=== PATIENT | male | born 1970 | race Caucasian/White ===

== ENCOUNTER → 2021-12-02 11:22 | Outpatient (BNVA) | payer SELFPAY | PROVIDERS: Visit Provider Family Medicine | DX: M79.603 Pain in arm, unspecified (principal) | CPT/HCPCS: 73060 ==

== ENCOUNTER 2025-01-12 20:47 | Emergency (ER) | payer SELFPAY ==
--- NOTE | 2025-01-12 20:48 | XRR_ITS ---
PROCEDURE INFORMATION: Exam: XR Chest Exam date and time: 01/12/2025 9:22 PM Age: 54 years old Clinical indication: Chest pressure; Chest pain TECHNIQUE: Imaging protocol: Radiologic exam of the chest. Views: 1 view. COMPARISON: [place] [id number] 12/02/2021 11:25 AM FINDINGS: Lungs: Unremarkable. No consolidation. Pleural spaces: Unremarkable. No pleural effusion. No pneumothorax. Heart/Mediastinum: Unremarkable. No cardiomegaly. Bones/joints: Unremarkable. XR/XR chest 1V portable [id number] IMPRESSION: No acute findings.
--- NOTE | 2025-01-12 20:48 | ECG_ITS ---
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 Measurements Intervals [place] Rate: 86 P: 56 [place]: 150 QRS: 18 QRSD: 99 T: 40 QT: 334 QTc: 400 Interpretive Statements SINUS RHYTHM No previous ECG available for comparison Electronically Signed On 01-12-2025 21:08:56 CDT by Mallika Watkins M.D. [id number]
[2025-01-12 20:54] VITALS: BP 122/76; PULSE 88; RESP 16; TEMP 38.9; O2SAT 95; BMI 27.8
[2025-01-12 21:06] LABS: Basophils # 0.1 10^3/uL (0.0-0.1); Basophils % 0.4 %; Eosinophils # 0.3 10^3/uL (0.0-0.8); Hematocrit 41.2 % (37-53); Lymphocytes # 2.1 10^3/uL (0.8-4.8); Lymphocytes % 14.8 %; Mean Corpuscular HGB Conc 33.3 g/dL (30-55); Mean Corpuscular Hemoglobin 28.4 pg (27-33); Mean Corpuscular Volume 85.3 fl (82-101); Mean Platelet Volume 10.4 fL (7.4-10.4); Monocytes # 1.6 10^3/uL (0.2-0.9); Monocytes % 11.4 %; Neutrophils # 9.95 10^3/uL (1.8-7.7); Nucleated Red Blood Cells % 0 %; Platelet Count 236 10^3/cmm (157-399); Red Blood Count 4.83 10^6/uL (3.85-5.65); Red Cell Distribution Width 13.6 % (12.1-15.1); White Blood Count 13.99 10^3/uL (3.29-11.43)
[2025-01-12 21:26] LABS: Troponin(5th) Baseline 14 ng/L (0-15)
[2025-01-12 21:27] LABS: Lactic Sepsis W/Reflex 1.1 mmol/L (0.5-2.2)
[2025-01-12 21:40] LABS: Alanine Aminotransferase 17 U/L (0-41); Albumin Level 3.9 g/dL (3.5-5.2); Alkaline Phosphatase 70 U/L (40-130); Anion Gap 15.2 (5-19); Aspartate Amino Transferase 18 U/L (0-40); Blood Urea Nitrogen 18 mg/dL (6-20); Calcium 8.2 mg/dL (8.5-10.5); Carbon Dioxide 15 mmol/L (22-29); Chloride 108 mmol/L (98-107); Creatinine Clr Calc Pharmacy 117.9496; Globulin 4.4 g/dL (1.3-4.6); Glomerular Filtration Rate 100.7 mL/min (90-130); Glucose 105 mg/dL (65-115); Lipase 30 U/L (13-60); NT Pro B Type Natriuretic Pept 61 pg/mL (0-125); Osmolality Calculated 280 mOsm/kg (285-295); Potassium 4.2 mmol/L (3.5-5.1); Sodium 134 mmol/L (136-145); Total Bilirubin 0.2 mg/dL (0.15-1.2); Total Protein 8.3 g/dL (6.6-8.7)
[2025-01-12] MEDS: ibuprofen 200 mg Tablet 400 MG PO (21:59)
[2025-01-12 22:29] VITALS: BP 128/81; PULSE 78; RESP 16; O2SAT 93
--- NOTE | 2025-01-12 22:32 | W.ED.CHESTPA ---
HPI - Chest Pain General: Chief Complaint: Chest Pain Stated Complaint: CP into back SOB Time Seen by Provider: 01/12/25 21:02 History of Present Illness: 54-year-old male patient presents with 5 days of cough, congestion, postnasal drip, sore throat, chest discomfort. Chest discomfort is mildly worse with cough. Today he ran a fever of up to 102. He has been taking Tylenol severe sinus with transient relief. No vomiting or diarrhea. Related Data Previous Rx's ?Medication ?Instructions ?Recorded tramadol 50 mg tablet 50 mg PO BID PRN pain #10 tabs 12/02/21 albuterol sulfate 90 mcg/actuation 2 inh inhalation Q4H PRN shortness 01/12/25 aerosol inhaler of breath or wheezing #6.7 grams doxycycline hyclate 100 mg tablet 100 mg PO BID 7 days #14 tabs 01/12/25 methylprednisolone 4 mg tablets in See Rx Instructions PO .COMPLEX 01/12/25 a dose pack (Medrol (Rashawn)) #21 ea Allergies Allergy/AdvReac Type Severity Reaction Status Date / Time Sulfa (Sulfonamide Allergy Mild ADR-Heartbu Verified 12/02/21 11:05 Antibiotics) rn Physical Exam Const: COMMON NORMALS: no acute distress GENERAL APPEARANCE: cooperative; not frail appearing HENMT: COMMON NORMALS: normocephalic, atraumatic and Normal external nose present HEAD & SCALP: normocephalic and atraumatic FACE & SINUS: normal facial exam and face symmetric; no edema NOSE: Normal external nose present and Normal nares present MOUTH: Normal oral and palatal mucosa present THROAT: postnasal drainage Eye: COMMON NORMALS: Equal, round and reactive pupils present and EOMs intact bilaterally PUPIL: Yes Equal, round and reactive pupils present Neck/C-Spine: GENERAL: Yes trachea midline Chest: CHEST: Yes Symmetrical chest wall rise Resp: COMMON NORMALS: normal respiratory effort, No retractions, No use of accessory muscles and clear to auscultation bilaterally AUSCULTATION: clear to auscultation bilaterally Cardio: COMMON NORMALS: regular rate and regular rhythm RATE: regular rate RHYTHM: regular rhythm GI: COMMON NORMALS: Normal to inspection, nondistended, normoactive bowel sounds present Extremity: COMMON NORMALS: no pedal edema Neuro: BRI COMA SCALE: document GCS findings Wallace coma scale eye opening: Spontaneous Wallace coma scale verbal response: Orientated Wallace coma scale motor response: Obey commands Bri coma scale total score: 15 SENSORY EXAM: Yes extremities (intact) Psych: COMMON NORMALS: speech normal SPEECH: Yes normal speech Skin: COMMON NORMALS: no rashes or lesions noted GENERAL SKIN EXAM: no rashes or lesions noted Course Vital Signs: Vital signs: Vital Signs Temperature 102.0 F H 01/12/25 20:54 Pulse Rate 71 01/12/25 22:49 Respiratory Rate 18 01/12/25 22:49 Blood Pressure 107/79 01/12/25 22:49 Pulse Oximetry 95 01/12/25 22:49 Oxygen Delivery Me thod Room Air 01/12/25 22:49 MDM - Chest Pain Medical Decision Making Significant congestion postnasal drip. White blood cell count is 14, bicarbonate is 15. Chest x-ray is nonacute. Swabs are negative for COVID flu and RSV. He is febrile with a 102 temperature. He is covered with doxycycline, steroid taper, albuterol for cough. Return for worsening symptoms. His troponin is 14, with no change in his chest discomfort for the last 3 days. EKG was nonacute. Lab Data 01/12/25 20:54 01/12/25 20:54 Radiology Impressions Chest X-Ray 01/12/25 20:48 IMPRESSION: No acute findings. Laboratory Results WBC 13.99 10^3/uL (3.29-11.43) H 01/12/25 20:54 RBC 4.83 10^6/uL (3.85-5.65) 01/12/25 20:54 Hgb 13.70 g/dL (11.27-16.99) 01/12/25 20:54 Hct 41.2 % (37-53) 01/12/25 20:54 MCV 85.3 fl (82-101) 01/12/25 20:54 MCH 28.4 pg (27-33) 01/12/25 20:54 MCHC 33.3 g/dL (30-55) 01/12/25 20:54 RDW 13.6 % (12.1-15.1) 01/12/25 20:54 Plt Count 236 10^3/cmm (157-399) 01/12/25 20:54 MPV 10.4 fL (7.4-10.4) 01/12/25 20:54 Neut % (Auto) 71.0 % 01/12/25 20:54 Lymph % (Auto) 14.8 % 01/12/25 20:54 [place] % (Auto) 11.4 % 01/12/25 20:54 Eos % (Auto) 2.0 % 01/12/25 20:54 Baso % (Auto) 0.4 % 01/12/25 20:54 Neut # (Auto) 9.95 10^3/uL (1.8-7.7) H 01/12/25 20:54 Lymph # (Auto) 2.1 10^3/uL (0.8-4.8) 01/12/25 20:54 [place] # (Auto) 1.6 10^3/uL (0.2-0.9) H 01/12/25 20:54 Eos # (Auto) 0.3 10^3/uL (0.0-0.8) 01/12/25 20:54 Baso # (Auto) 0.1 10^3/uL (0.0-0.1) 01/12/25 20:54 Nucleated RBC % (auto) 0 % 01/12/25 20: Nucleated RBCs # 0.0 /100WBC 01/12/25 20:54 Sodium 134 mmol/L (136-145) L 01/12/25 20:54 Potassium 4.2 mmol/L (3.5-5.1) 01/12/25 20:54 Chloride 108 mmol/L (98-107) H 01/12/25 20:54 Carbon Dioxide 15 mmol/L (22-29) L 01/12/25 20:54 Anion Gap 15.2 (5-19) 01/12/25 20:54 BUN 18 mg/dL (6-20) 01/12/25 20:54 Creatinine 0.8 mg/dL (0.7-1.2) 01/12/25 20:54 GFR Calculation 100.7 mL/min (90-130) 01/12/25 20:54 Glucose 105 mg/dL (65-115) 01/12/25 20:54 Calculated Osmolality 280 mOsm/kg (285-295) L 01/12/25 20:54 Lactic Acid 1.1 mmol/L (0.5-2.2) 01/12/25 20:54 Calcium 8.2 mg/dL (8.5-10.5) L 01/12/25 20:54 Total Bilirubin 0.2 mg/dL (0.15-1.2) 01/12/25 20:54 AST 18 U/L (0-40) 01/12/25 20:54 ALT 17 U/L (0-41) 01/12/25 20:54 Alkaline Phosphatase 70 U/L (40-130) 01/12/25 20:54 Troponin T Baseline 14 ng/L (0-15) 01/12/25 20:54 NT-Pro-B Natriuret Pep 61 pg/mL (0-125) 01/12/25 20:54 Total Protein 8.3 g/dL (6.6-8.7) 01/12/25 20:54 Albumin 3.9 g/dL (3.5-5.2) 01/12/25 20:54 Globulin 4.4 g/dL (1.3-4.6) 01/12/25 20:54 Lipase 30 U/L (13-60) 01/12/25 20:54 Influenza A (PCR) Negative (Negative) 01/12/25 22:01 Influenza Type B (PCR) Negative (Negative) 01/12/25 22:01 RSV (PCR) Negative (Negative) 01/12/25 22:01 SARS-CoV-2 (PCR) Negative (Negative) 01/12/25 22:01 All radiology interpretation(s) finalized by discharge Discharge Plan Discharge Patient Disposition: Home Clinical Impression: Acute bronchitis, Sinusitis Condition: Stable Prescriptions: New methylprednisolone [Medrol (Rashawn)] 4 mg tablets,dose pack See Rx Instructions .ROUTE .COMPLEX Qty: 21 0RF Rx Instructions: orally per package directions albuterol sulfate 90 mcg/actuation HFA aerosol inhaler 2 inh INHALATION Q4H PRN (Reason: shortness of breath or wheezing) Qty: 6.7 1RF doxycycline hyclate 100 mg tablet 100 mg PO BID 7 Days Qty: 14 0RF No Action tramadol 50 mg tablet 50 mg PO BID PRN (Reason: pain) Qty: 10 0RF Discharge Orders: Discharge ED (Routine); Ordered 01/12/25 Ordered By: Alexander Kaur Patient Instructions: Sinusitis (ED), Acute Bronchitis (ED), Opioid Safety, Pain Management Activity Restrictions/Additional Instructions: Antibiotics and steroids as directed. Use the inhaler every 4 hours while awake for the first 48 hours scheduled, then as needed following that. Make sure you stay hydrated. Return for worsening symptoms despite treatment. Print Language: [place] Islander Coding Level of Care Code ED Medicaid Business Analyst for Dory Cedeño
[2025-01-12 22:41] LABS: Influenza A NEGATIVE (Negative); Influenza B NEGATIVE (Negative); Respiratory Syncytial Virus Ce NEGATIVE (Negative); SARS-CoV-2 PCR NEGATIVE (Negative)
[2025-01-12] MEDS: methylPREDNISolone sod succ 125 mg/2 mL INJ 80 MG IVP (22:47)
[2025-01-12] MEDS: doxycycline 100 mg Tablet PO (22:47)
[2025-01-12] MEDS: sodium chloride 0.9% 500 ML 999 ML IV (22:47)
--- NOTE | 2025-01-12 22:48 | ECG_ITS ---
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 Measurements Intervals [place] Rate: 75 P: 81 [place]: 154 QRS: 6 QRSD: 95 T: 40 QT: 361 QTc: 403 Interpretive Statements SINUS RHYTHM NONSPECIFIC T-WAVE ABNORMALITY Compared to ECG 01/12/2025 20:53:31 T-wave abnormality now present Electronically Signed On 01-13-2025 21:40:14 CDT by Mallika Watkins M.D. [id number] [id number]
[2025-01-12 22:49] VITALS: BP 107/79; PULSE 71; RESP 18; O2SAT 95
[2025-01-12 23:15] VITALS: BP 117/73; PULSE 74; RESP 16; O2SAT 95
== END 2025-01-12 23:14 | disposition home or self-care (01) ==
PROVIDERS: Emergency Medicine; Emergency Provider Emergency Medicine
DX: J20.9 Acute bronchitis, unspecified (principal); J32.9 Chronic sinusitis, unspecified; Z11.52 Encounter for screening for COVID-19
CPT/HCPCS: 36415; 71045; 80053; 83605; 83690; 83880; 84484; 85025; 87637; 93005; 96374; 99285; J2919; J7040; J9999

== ENCOUNTER 2025-04-06 20:06 | Emergency (ER) | payer SELFPAY ==
--- OUTSIDE RECORDS SUMMARY | 2022-10-28 07:36 | XMS_ITS | Continuity of Care Document ---
Author Organization [facility] Address [id number] [address] Phone Care Team Providers Care Needle Process Felt Goods Supervisor Name Role Phone Coordinator, Care Unavailable Unavailable Allergies, Adverse Reactions, Alerts Substance Reaction Status Criticality Sulfa (Sulfonamide Antibiotics) Active No Information Procedures Procedure Date Limited Oral Evaluation Problem Focused Intraoral Periapical First Film Intraoral Periapical Each Additional Film Extraction, Erupted Tooth Or Exposed Suyapa t (Elevati Extraction, Erupted Tooth Or Exposed Suyapa t (Elevati Surgical Removal Of Erupted Tooth Requir ing Elevat Resin-Based Composite Two Surfaces, Posterior Resin-Based Composite One Surface, Posterior Comprehensive Oral Evaluatio n New Or Established Bitewings Four Films Panoramic Film Intraoral Periapical First Film Intraoral Periapical Each Additional Film Intraoral Periapical Each Additional Film Intraoral Periapical Each Additional Film Comprehensive exam & x-ray Surgical Removal Of Erupted Tooth Requir ing Elevat EDR Approval Note Pre-Pay For Services Limited Oral Evaluation Problem Focused Panoramic Film Bitewings Two Films Intraoral Periapical First Film Intraoral Periapical Each Additional Film Intraoral Periapical Each Additional Film Extraction, Erupted Tooth Or Exposed Suyapa t (Elevati Extraction, Erupted Tooth Or Exposed Suyapa t (Elevati Extraction, Erupted Tooth Or Exposed Suyapa t (Elevati Extraction, Erupted Tooth Or Exposed Suyapa t (Elevati Treatment Plan Complete EDR Approval Note Advance Directives Directive Yes / No Effective Date File Name No Information Encounters Encounter Description Practice Location Reason(s) For Visit Diagnoses Date Provider Providers Copied on Encounter [facility], [id number], [id number], [place] tel:[phone] Pediatrics F1 No Information 3 Coordinator Care. [address], [place], [address], [place]. tel:[phone] [facility], [id number], [address], [place] tel:[phone] [facility] No Information 3 Nj Moreno. [address], [place], [address], [place]. tel:[phone] Referring Provider: Herminia Mauro, [address] [place], [address] . tel:[phone] [facility], [id number], [address], [place] tel:[phone] [facility] No Information 2 Ron Boyce. [address], [place], [address], [place]. tel:[phone] Referring Provider: Austen Velasquez, [address] [place], [address] . tel:[phone] [facility], [id number] [place], [address], tel:[phone] [facility] Encounter for dental exam and cleaning w/o abnormal findings Ron Boyce. [address], [place], [address], [place]. tel:[phone] Referring Provider: Austen Velasquez, [address] [place], [address] . tel:[phone] [facility], [id number] [place], [id number], [place] tel:[phone] [facility] Encounter for dental exam and cleaning w/o abnormal findings 8 Christian Woodard. [address] [place], [address], [place]. tel:[phone] Referring Provider: Vance Gonzales, [address] [place], [address]. tel:[phone] Family History Family Member Type Diagnosis Age At Onset No Information Payers Payer name Insurance type Covered constitution party ID Authoriza tion(s) No Information Social History Type Description Quantity Date Captured Comments Alcohol Use Details Unknown Caffeine Use Details Unknown Tobacco Use Status Smoking Status No Information Sex Male Sexual Orientation Heterosexual Gender Identity Male Chief Complaint And Reason For Visit No Information Reason For Referral Reason For Referral No Information History Of Present Illness Encounter Date Complaint History Of Prese nt Illness No Information Functional Status Date Functional Assessmen t No Information Instructions Date Instruction Additional Infor mation No Information Assessments Type Assessment Date No Information Patient Care Teams Name Effective Dates (start - stop) Status Members No Information
[2025-04-06 20:11] VITALS: BP 133/76; PULSE 90; RESP 18; TEMP 36.4; O2SAT 98; BMI 27.0
--- OUTSIDE RECORDS SUMMARY | 2025-04-06 20:11 | XMS_ITS | Clinical Summary ---
Author Organization [facility] Address [address] [address] Phone Care Team Providers Care Manager Transportation Name Role Phone Keturah Pichardo RUSSELL Primary Care Provider [phone] Allergies Active Allergy Reactions Criticality Noted Date Comments Sulfa (Sulfonamide Antibiotics) Hives High 01/2022 Medications No known medications Social History Tobacco Use Types Packs/Day Years Used Date Smoking Tobacco: Every Day Cigarettes Smokeless Tobacco: Current Chew Alcohol Use Standard Drinks/Week Comments Yes 0 (1 standard drink = 0.6 oz pur e alcohol) socially Sex and Gender Information Value Date Recorded Sex Assigned at Not on file Legal 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 Gender Identity Not on file Sexual Orientation Not on file Last Filed Vital Signs Vital Sign Reading Time Taken Comments Blood Pressure 115/86 12/04/2021 5:30 PM MARINE DIVER Pulse 87 12/04/2021 5:30 PM MARINE DIVER Temperature 37 C (98.6 F) 12/04/2021 3:19 PM MARINE DIVER Respiratory Rate 20 12/04/2021 3:19 PM MARINE DIVER Oxygen Saturation 95% 12/04/2021 5:30 PM MARINE DIVER Inhaled Oxygen Concentration - - Weight 91.7 kg (202 lb 3.2 oz) 12/04/2021 3:19 P M MARINE DIVER Height 177.8 cm (5' 10 ) 12/04/2021 3:19 PM MARINE DIVER Body Mass Index 29.01 12/04/2021 3:19 PM MARINE DIVER Plan of Treatment Health Maintenance Due Date Last Done Comments DTAP/TDAP/TD VACCINES (1 - Tdap) 1989 HEPATITIS B VACCINES (1 of 3 - 19+ 3-dose series) 10/1988 COLORECTAL SCREENING 2015 Colorectal Cancer Screening 2015 FIT-DNA Q 3 years 2015 FIT/FOBT Q 1 year 2015 Flex Sig/CT Colonography Q 5 years 2015 ZOSTER VACCINE (1 of 2) 2020 INFLUENZA VACCINE (#1) 2025 Care Teams Manager Transportation Relationship Specialty Start Date End Date Keturah Pichardo FNP PCP - General Nurse Practitioner Family 12/04/21
--- NOTE | 2025-04-06 20:21 | XRR_ITS ---
PROCEDURE INFORMATION: Exam: XR Chest Exam date and time: 04/06/2025 9:39 PM Age: 54 years old Clinical indication: Chest pressure; Chest pain TECHNIQUE: Imaging protocol: Radiologic exam of the chest. Views: 1 view. COMPARISON: CR XR chest 1V portable [id number] 01/12/2025 9:22 PM FINDINGS: Lungs: Unremarkable. No consolidation. Pleural spaces: Unremarkable. No pleural effusion. No pneumothorax. Heart/Mediastinum: Unremarkable. No cardiomegaly. Bones/joints: Unremarkable. XR/XR chest 1V portable [id number] IMPRESSION: No acute findings.
--- NOTE | 2025-04-06 20:22 | ECG_ITS ---
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 [id number]
--- NOTE | 2025-04-06 20:43 | W.ED.CHESTPA ---
HPI - Chest Pain General: Chief Complaint: Chest Pain Stated Complaint: CP SOB Time Seen by Provider: 04/06/25 20:28 History of Present Illness: 54-year-old male complaining of sharp left-sided chest pain radiating his back and his arm. The arm meaning his shoulder in particular. Pain is worse with deep breathing. Related Data Previous Rx's ?Medication ?Instructions ?Recorded tramadol 50 mg tablet 50 mg PO BID PRN pain #10 tabs 12/02/21 albuterol sulfate 90 mcg/actuation 2 inh inhalation Q4H PRN shortness 01/12/25 aerosol inhaler of breath or wheezing #6.7 grams methylprednisolone 4 mg tablets in See Rx Instructions PO .COMPLEX 01/12/25 a dose pack (Medrol (Rashawn)) #21 ea Allergies Allergy/AdvReac Type Severity Reaction Status Date / Time Sulfa (Sulfonamide Allergy Mild ADR-Heartbu Verified 04/06/25 20:15 Antibiotics) rn Physical Exam Const: COMMON NORMALS: no acute distress GENERAL APPEARANCE: cooperative; not ill appearing and not frail appearing HENMT: COMMON NORMALS: normocephalic, atraumatic and Normal external nose present HEAD & SCALP: normocephalic and atraumatic FACE & SINUS: normal facial exam and face symmetric NOSE: Normal external nose present Eye: COMMON NORMALS: Equal, round and reactive pupils present and EOMs intact bilaterally PUPIL: Yes Equal, round and reactive pupils present Neck/C-Spine: GENERAL: Yes trachea midline Chest: CHEST: Yes Symmetrical chest wall rise Resp: COMMON NORMALS: normal respiratory effort, No retractions, No use of accessory muscles and clear to auscultation bilaterally AUSCULTATION: clear to auscultation bilaterally Cardio: COMMON NORMALS: regular rate and regular rhythm RATE: regular rate RHYTHM: regular rhythm GI: COMMON NORMALS: Normal to inspection, nondistended, normoactive bowel sounds present Extremity: COMMON NORMALS: no pedal edema Neuro: BRI COMA SCALE: document GCS findings [place] coma scale eye opening: Spontaneous Bri coma scale verbal response: Orientated [place] coma scale motor response: Obey commands Bri coma scale total score: 15 SENSORY EXAM: Yes extremities (intact) Psych: COMMON NORMALS: speech normal SPEECH: Yes normal speech Skin: COMMON NORMALS: no rashes or lesions noted GENERAL SKIN EXAM: no rashes or lesions noted Course Vital Signs: Vital signs: Vital Signs Temperature 97.5 F L 04/06/25 20:11 Pulse Rate 79 04/07/25 00:30 Respiratory Rate 13 04/07/25 00:30 Blood Pressure 111/81 04/07/25 00:30 Pulse Oximetry 95 04/07/25 00:30 Oxygen Delivery Me thod Room Air 04/06/25 20:11 MDM - Chest Pain Medical Decision Making 54-year-old gentleman with pleuritic type left-sided chest pain. CBC is normal. BMP is normal. Chest x-ray is nonacute. His vitals are good. Pain is essentially resolved at this point. His troponin was 18 on arrival, and did not rise at 2 hours. This is the second time he is had this type of pain. He shows no sign of pulmonary embolus. His heart rate is 78, saturations above 95% on room air. I would argue with 2 episodes, he could use a stress test at his age. This will be ordered as an outpatient. He will return for any return of symptoms in the meantime. Lab Data 04/06/25 20:50 04/06/25 20:50 Radiology Impressions Chest X-Ray 04/06/25 20:21 IMPRESSION: No acute findings. Laboratory Results WBC 8.65 10^3/uL (3.29-11.43) 04/06/25 20:50 RBC 4.42 10^6/uL (3.85-5.65) 04/06/25 20:50 Hgb 12.70 g/dL (11.27-16.99) 04/06/25 20:50 Hct 38.5 % (37-53) 04/06/25 20:50 MCV 87.1 fl (82-101) 04/06/25 20:50 MCH 28.7 pg (27-33) 04/06/25 20:50 MCHC 33.0 g/dL (30-55) 04/06/25 20:50 RDW 13.4 % (12.1-15.1) 04/06/25 20:50 Plt Count 333 10^3/cmm (157-399) 04/06/25 20:50 MPV 10.3 fL (7.4-10.4) 04/06/25 20:50 Neut % (Auto) 57.4 % 04/06/25 20:50 Lymph % (Auto) 24.4 % 04/06/25 20:50 [place] % (Auto) 12.5 % 04/06/25 20:50 Eos % (Auto) 4.4 % 04/06/25 20:50 Baso % (Auto) 0.6 % 04/06/25 20:50 Neut # (Auto) 4.97 10^3/uL (1.8-7.7) 04/06/25 20:50 Lymph # (Auto) 2.1 10^3/uL (0.8-4.8) 04/06/25 20:50 [place] # (Auto) 1.1 10^3/uL (0.2-0.9) H 04/06/25 20:50 Eos # (Auto) 0.4 10^3/uL (0.0-0.8) 04/06/25 20:50 Baso # (Auto) 0.1 10^3/uL (0.0-0.1) 04/06/25 20:50 Nucleated RBC % (auto) 0 % 04/06/25 20:50 Nucleated RBCs # 0.0 /100WBC 04/06/25 20:50 Sodium 138 mmol/L (136-145) 04/06/25 20:50 Potassium 4.4 mmol/L (3.5-5.1) 04/06/25 20:50 Chloride 107 mmol/L (98-107) 04/06/25 20:50 Carbon Dioxide 19 mmol/L (22-29) L 04/06/25 20:50 Anion Gap 16.4 (5-19) 04/06/25 20:50 BUN 19 mg/dL (6-20) 04/06/25 20:50 Creatinine 0.8 mg/dL (0.7-1.2) 04/06/25 20:50 GFR Calculation 100.7 mL/min (90-130) 04/06/25 20:50 Glucose 103 mg/dL (65-115) 04/06/25 20:50 Calculated Osmolality 289 mOsm/kg (285-295) 04/06/25 20:50 Calcium 9.0 mg/dL (8.5-10.5) 04/06/25 20:50 Total Bilirubin 0.2 mg/dL (0.15-1.2) 04/06/25 20:50 AST 19 U/L (0-40) 04/06/25 20:50 ALT 21 U/L (0-41) 04/06/25 20:50 Alkaline Phosphatase 64 U/L (40-130) 04/06/25 20:50 Troponin T Baseline 18 ng/L (0-15) H 04/06/25 20:50 Troponin T 120 Minute 17.16 ng/L (0-15) H 04/06/25 22:32 Delta Troponin T -0.84 ABS# (0-10) L 04/06/25 22:32 NT-Pro-B Natriuret Pep 232 pg/mL (0-125) H 04/06/25 20:50 Total Protein 7.3 g/dL (6.6-8.7) 04/06/25 20:50 Albumin 3.7 g/dL (3.5-5.2) 04/06/25 20:50 Globulin 3.6 g/dL (1.3-4.6) 04/06/25 20:50 All radiology interpretation(s) finalized by discharge Discharge Plan Discharge Patient Disposition: Home Clinical Impression: Chest pain Condition: Stable Prescriptions: No Action tramadol 50 mg tablet 50 mg PO BID PRN (Reason: pain) Qty: 10 0RF methylprednisolone [Medrol (Rashawn)] 4 mg tablets,dose pack See Rx Instructions .ROUTE .COMPLEX Qty: 21 0RF Rx Instructions: orally per package directions albuterol sulfate 90 mcg/actuation HFA aerosol inhaler 2 inh INHALATION Q4H PRN (Reason: shortness of breath or wheezing) Qty: 6.7 1RF Discharge Orders: Discharge ED (Routine); Ordered 04/07/25 Ordered By: Alexander Kaur Patient Instructions: Chest Pain (ED), Opioid Safety, Pain Management, Patient Portal & Jason Instructions Activity Restrictions/Additional Instructions: Return for any return of your symptoms such as chest discomfort, shortness of breath, fever, cough, any other concerns. Case management will contact you regarding an outpatient stress test. You should hear from them early this week. Call your doctor later this morning for an outpatient follow-up appointment. Print Language: Kinyarwanda Coding Level of Care Code ED Progressive Care Manager for Dory Cedeño
[2025-04-06 20:57] LABS: Hematocrit 38.5 % (37-53); Hemoglobin 12.70 g/dL (11.27-16.99); Mean Corpuscular HGB Conc 33.0 g/dL (30-55); Mean Corpuscular Hemoglobin 28.7 pg (27-33); Mean Corpuscular Volume 87.1 fl (82-101); Nucleated Red Blood Cells % 0 %; Platelet Count 333 10^3/cmm (157-399); Red Blood Count 4.42 10^6/uL (3.85-5.65); White Blood Count 8.65 10^3/uL (3.29-11.43)
[2025-04-06 21:15] LABS: Troponin(5th) Baseline 18 ng/L (0-15)
[2025-04-06 21:36] LABS: Alanine Aminotransferase 21 U/L (0-41); Albumin Level 3.7 g/dL (3.5-5.2); Alkaline Phosphatase 64 U/L (40-130); Anion Gap 16.4 (5-19); Aspartate Amino Transferase 19 U/L (0-40); Blood Urea Nitrogen 19 mg/dL (6-20); Calcium 9.0 mg/dL (8.5-10.5); Carbon Dioxide 19 mmol/L (22-29); Chloride 107 mmol/L (98-107); Creatinine Clr Calc Pharmacy 116.4870; Globulin 3.6 g/dL (1.3-4.6); Glucose 103 mg/dL (65-115); NT Pro B Type Natriuretic Pept 232 pg/mL (0-125); Osmolality Calculated 289 mOsm/kg (285-295); Potassium 4.4 mmol/L (3.5-5.1); Sodium 138 mmol/L (136-145); Total Protein 7.3 g/dL (6.6-8.7)
[2025-04-06 22:14] VITALS: BP 104/68; PULSE 80; RESP 24; O2SAT 96
--- NOTE | 2025-04-06 22:22 | ECG_ITS ---
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
[2025-04-06 22:55] LABS: Troponin 5 2HR 17.16 ng/L (0-15)
[2025-04-06 22:58] VITALS: RESP 20
[2025-04-06] MEDS: ondansetron 2 mg/ML SDV 2 mL 4 MG IVP (22:58)
[2025-04-06] MEDS: morphine 4 mg/mL SDV 1 mL IVP (22:58)
[2025-04-06 23:05] LABS: Troponin 5 2HR Delta -0.84 ABS# (0-10)
[2025-04-06 23:14] VITALS: BP 113/79; PULSE 82; RESP 20; O2SAT 96
[2025-04-07 00:30] VITALS: BP 111/81; PULSE 79; RESP 13; O2SAT 95
--- NOTE | 2025-04-10 07:40 | DCPLANNER ---
faxed outpatient lexiscan to scheduling
== END 2025-04-07 00:30 | disposition home or self-care (01) ==
PROVIDERS: Physician Assistant; Emergency Provider Emergency Medicine
DX: R07.9 Chest pain, unspecified (principal)
CPT/HCPCS: 36415; 71045; 80053; 83880; 84484; 85025; 93005; 93010; 96374; 96375; 99285; J2270; J2405